=== PATIENT | male | born 1950 | race African-American/Black ===

== ENCOUNTER → 2021-06-27 | Outpatient (CLI) | payer OTHER ==
--- NOTE | ~2021-06-27 | PFR/MVV ---
[facility] [place] [address] PULMONARY FUNCTION MVV/REPORT Name: NATI RADFORD Room #: REG MINOR Healy#: [id number] Admission: 06/27/21 Attend Phys: Physician not on staff Discharge: Date of : 46 Report #: [id number] THIS REPORT FOR: //name// >> SPIROMETRY: (BTPS) Height: 70.5 in cm Weight: 176 lbs kg Exam Date: 06/27/21 PRE-RX POST-RX PRED BEST %PRED BEST %PRED %CHG FVC LITERS . 4.39 . 3.36 . 76 . 3.35 . 76 . 0 FEV1 LITERS . 2.92 . 2.28 . 78 . 2.28 . 78 . 0 FEV1/FVC % . 68 . 68 . 100 . 68 . 100 . 0 VPI08-14% L/Sec . 2.59 . 1.23 . 47 . 1.44 . 56 . 17 PEF L/SEC . 8.32 . 3.99 . 48 . 3.99 . 48 . 0 FEF50/FIF50 UNITLESS . 4.07 . 2.63 . 65 . 2.80 . 69 . 6 MVV L/Min . 127 . 50 . 39 f 1/Min . . . >> LUNG VOLUMES: (BTPS) PRE-RX POST-RX PRED AVG %PRED AVG %PRED %CHG VC Liters . 4.39 . 3.36 . 76 . . . TLC Liters . 6.60 . 5.16 . 78 . . . RV Liters . 2.61 . 1.80 . 69 . . . RV/TLC % . 41 . 35 . 84 . . . FRC PL Liters . 3.85 . 2.95 . 76 . . . FRC N2 Liters . 3.85 . . . . . ERV Liters . 1.50 . 0.38 . 25 . . . IC Liters . 3.00 . 2.21 . 74 . . . >> DIFFUSION: DLCO ml/Min/mmHg . 20.4 . 7.5 . 36 . . . DL Leydi ml/Min/mmHg . 20.4 . 7.5 . 36 . . . DLCO/VA ml/Min/mmHg . 3.51 . 3.50 . 100 . . . VA Liters . . 2.13 . . . . COMMENTS: COMMENTS: >> RESISTANCE: [facility] [address] [place] [address] PULMONARY FUNCTION MVV/REPORT Name: NATI RADFORD Room #: REG Brenda Tamayo.#: [id number] Admission: 06/27/21 Attend Phys: Physician not on staff Discharge: Date of : 46 Report #: [id number] PRE-RX PRED AVG %PRED Raw Total cmH20/L/Sec . . 2.78 . Raw Insp cmH20/L/Sec . . 3.38 . Raw Exp cmH20/L/Sec . . 3.18 . Raw cmH20/L/Sec . 1.14 . 1.88 . 164 Gaw L/Sec/cmH20 . 0.925 . 0.532 . 58 sRaw cmH20 Sec . 4.40 . 6.53 . 148 sGaw l/cmH20 Sec . 0.227 . 0.153 . 67 Vtq Liters . . 3.48 . # = OUTSIDE 95% CONFIDENCE INTERVAL CALIBRATION: PRED: 3.00 ACTUAL: EXP 3.01 INSP 3.02 [facility] [place] [id number] >> INTERPRETATION/IMPRESSION: DATE OF SERVICE: 06/27/2021 PULMONARY FUNCTION TEST Forced vital capacity is mildly decreased. FEV1 is mildly decreased. FEV1/FVC ratio is decreased. No improvement postbronchodilator. Lung volumes reveal a mild restrictive abnormality. Diffusion capacity is decreased. IMPRESSION: Mild restrictive abnormality with low diffusion. This is suggestive of interstitial lung disease. Clinical correlation is recommended. By: Anibal Lafleur MD /nt
== END ==
LOC: PUL 09:03
DX: Z20.822 Contact with and (suspected) exposure to COVID-19 (principal)